=== PATIENT | female | born 1965 | race Caucasian/White ===

== ENCOUNTER → 2017-12-16 | Outpatient (CLI) | payer BC ==
--- NOTE | 2017-12-17 10:11 | MM ---
Reason for exam: screening (asymptomatic). Last mammogram was performed 1 year and 3 months ago. History: Patient is postmenopausal and is nulliparous. Physical Findings: A clinical breast exam by your physician is recommended on an annual basis and results should be correlated with mammographic findings. MG Screening Mammo w CAD Bilateral CC and MLO view(s) were taken. Prior study comparison: September 03, 2016, bilateral MG screening mammo w CAD. May 18, 2015, bilateral MG screening mammo w CAD. The breast tissue is heterogeneously dense. This may lower the sensitivity of mammography. There is no discrete abnormality. ASSESSMENT: Negative, BI-RAD 1 RECOMMENDATION: Routine screening mammogram of both breasts in 1 year.
== END | disposition home or self-care (01) ==
LOC: RADMAMWWP 08:00
PROVIDERS: ATTEND Obstetrics & Gynecology
DX: Z12.31 Encounter for screening mammogram for malignant neoplasm of breast (principal)
CPT/HCPCS: 77067

== ENCOUNTER → 2019-01-21 | Outpatient (CLI) | payer BC ==
--- NOTE | 2019-01-21 10:41 | BD ---
EXAMINATION TYPE: Axial Bone Density DATE OF EXAM: 01/21/2019 COMPARISON: NONE CLINICAL HISTORY: Height: 67 Weight: 177.4 FRAX RISK QUESTIONS: Alcohol (3 or more units per day): no Family History (Parent hip fracture): no Glucocorticoids (More than 3mos): no (Ex: prednisone, prednisolone, methylprednisolone, dexamethasone, and hydrocortisone). History of Fracture in Adulthood: no Secondary Osteoporosis: 1. Type 1 Diabetes: no 2. Hyperthyroidism: no 3. Menopause before 45: no 4. Malnutrition: no 5. Chronic liver disease: no Rheumatoid Arthritis: no Current Tobacco Use: yes RISK FACTORS HISTORY OF: Family History of Osteoporosis: yes Active: yes Diet low in dairy products/other sources of calcium: no Postmenopausal woman: 2 years ago MEDICATIONS:none Additional History: EXAM MEASUREMENTS: Bone mineral densitometry was performed using the [employer] System. Bone mineral density as measured about the Lumbar spine is: ----- L1-L4(G/cm2): 0.938 T Score Values are as follows: ----- L2: -1.6 ----- L3: -1.2 ----- L4: -3.2 ----- L1-L4: -2.0 Bone mineral density : baseline Bone mineral density about the R hip (g/cm2): 0.987 Bone mineral density about the L hip (g/cm2): 0.991 T Score values are as follows: -----R Neck: -0.4 -----L Neck: -0.3 -----R Total: 0.3 -----L Total: 0.3 Bone mineral density : baseline IMPRESSION: Osteopenia lumbar spine. NOTE: T-SCORE=SD OF THE YOUNG ADULT MEAN.
--- NOTE | 2019-01-22 10:27 | MM ---
Reason for exam: screening (asymptomatic). Last mammogram was performed 1 year and 1 month ago. History: Patient is postmenopausal and is nulliparous. Physical Findings: A clinical breast exam by your physician is recommended on an annual basis and results should be correlated with mammographic findings. MG Screening Mammo w CAD Bilateral CC and MLO view(s) were taken. Prior study comparison: December 16, 2017, bilateral MG screening mammo w CAD. September 03, 2016, bilateral MG screening mammo w CAD. The breast tissue is heterogeneously dense. This may lower the sensitivity of mammography. No suspicious abnormality. No significant changes when compared with prior studies. ASSESSMENT: Negative, BI-RAD 1 RECOMMENDATION: Routine screening mammogram of both breasts in 1 year.
== END | disposition home or self-care (01) ==
LOC: RADMAMWWP 08:20
PROVIDERS: ATTEND Obstetrics & Gynecology
DX: Z12.31 Encounter for screening mammogram for malignant neoplasm of breast (principal); M85.88 Other specified disorders of bone density and structure, other site; N95.1 Menopausal and female climacteric states
CPT/HCPCS: 77067; 77080

== ENCOUNTER → 2019-02-20 | Outpatient (CLI) | payer BC ==
[2019-02-20 20:11] LABS: LDL Cholesterol,Calculated 123.6 mg/dL (0.0-131.0); VLDL Calculation 13.4 mg/dL (5.00-40.00)
[2019-02-20 20:19] LABS: T4, Free (Free Thyroxine) 1.3 ng/dL (0.80-1.80)
== END ==
LOC: LABWHC1 10:36
PROVIDERS: ATTEND Obstetrics & Gynecology
DX: Z13.220 Encounter for screening for lipoid disorders (principal); Z13.29 Encounter for screening for other suspected endocrine disorder
CPT/HCPCS: 36415; 80061; 84439; 84443; 84479

== ENCOUNTER 2019-10-30 09:12 | Day surgery (SDC) | payer BC ==
[~2019-10-30 09:12] MED LIST: LACTATED RINGERS 1,000 ML IV SCH; LIDOCAINE 1% 20 ML VIAL (10MG/ML) FOR IV START INTRADERMA PRN
[2019-10-30 09:41] VITALS: RESP 16; TEMP 97.9
[2019-10-30] MEDS ORDERED: PROPOFOL 10 MG/ML 20 ML VIAL IV ONE (10:31)
[2019-10-30] MEDS ORDERED: LIDOCAINE 1% INJ 10MG/ML (20 ML MDV) ONE (10:31)
--- NOTE | 2019-10-30 11:19 | P.PCN ---
Date of Procedure: 10/30/19 Procedure(s) Performed: BRIEF HISTORY: Patient is a 53-year-old pleasant female scheduled for an elective colonoscopy as a part of screening for colorectal neoplasia. PROCEDURE PERFORMED: Colonoscopy. PREOPERATIVE DIAGNOSIS: Screening for colon cancer. IV sedation per Anesthesia. PROCEDURE: After informed consent was obtained, the patient, was brought into the endoscopy unit. IV sedation was administered by Anesthesia under continuous monitoring. Digital rectal examination was normal. Initially the Olympus CF-160 flexible video colonoscope was then inserted in the rectum, gradually advanced into the cecum without any difficulty. Careful examination was performed as the scope was gradually being withdrawn. Ileocecal valve and the appendiceal orifice were visualized and appeared normal. Prep was excellent. Mucosa of the cecum, ascending colon, transverse colon, descending colon, sigmoid colon, and rectum appeared normal. Retroflexion was performed in the rectum and no lesions were seen. The patient tolerated the procedure well. IMPRESSION: Normal-appearing colon from rectum to cecum no evidence of colorectal neoplasia. RECOMMENDATIONS: Findings of this examination were discussed with the patient is well as her family. She was advised to have a repeat screening colonoscopy in 10 years..
[2019-10-30 11:25] VITALS: BP 105/77; PULSE 87
== END 2019-10-30 11:42 | disposition home or self-care (01) ==
LOC: ORWHC2ENDO 09:12
PROVIDERS: ATTEND Internal Medicine Gastroenterology
DX: Z12.11 Encounter for screening for malignant neoplasm of colon (principal); Z98.890 Other specified postprocedural states
CPT/HCPCS: J2001; J2704; G0121

== ENCOUNTER → 2020-03-29 | Outpatient (CLI) | payer BC ==
[2020-03-29 14:20] LABS: MCH 29.6 pg (25.0-35.0); MCHC 31.1 g/dL (31.0-37.0); MCV 94.9 fL (80.0-100.0); Mean Platelet Volume 7.1; Platelet Count 242 k/uL (150-450); RBC 5.06 m/uL (3.80-5.40); RDW 13.1 % (11.5-15.5); WBC 7.2 k/uL (3.8-10.6)
[2020-03-29 19:12] LABS: Chol/HDL Ratio 3.85; LDL Cholesterol,Calculated 135.8 mg/dL (0.0-131.0); VLDL Calculation 21.2 mg/dL (5.00-40.00)
== END | disposition home or self-care (01) ==
LOC: LABWHC1 12:12
PROVIDERS: ATTEND Obstetrics & Gynecology
DX: Z13.220 Encounter for screening for lipoid disorders (principal); M85.80 Other specified disorders of bone density and structure, unspecified site
CPT/HCPCS: 36415; 80061; 82306; 85027

== ENCOUNTER → 2020-05-26 | Outpatient (CLI) | payer BC ==
--- NOTE | 2020-05-27 09:31 | MM ---
Reason for exam: screening (asymptomatic). Last mammogram was performed 1 year and 4 months ago. History: Patient is postmenopausal and is nulliparous. Physical Findings: A clinical breast exam by your physician is recommended on an annual basis and results should be correlated with mammographic findings. MG Screening Mammo w CAD Bilateral CC and MLO view(s) were taken. Prior study comparison: January 21, 2019, bilateral MG screening mammo w CAD. December 16, 2017, bilateral MG screening mammo w CAD. The breast tissue is heterogeneously dense. This may lower the sensitivity of mammography. Finding: There is a 5 mm obscured oval mass in the upper inner quadrant of the left breast. There is a chronic nodularity in the right breast, stable. ASSESSMENT: Incomplete: need additional imaging evaluation, BI-RAD 0 RECOMMENDATION: Special view mammogram of the left breast. If lesion persists on supplemental views, image directed ultrasound is recommended. [facility] will attempt to contact patient to return for supplemental views and ultrasound if indicated.
== END | disposition home or self-care (01) ==
LOC: RADMAMWWP 07:35
PROVIDERS: ATTEND Obstetrics & Gynecology
DX: Z12.31 Encounter for screening mammogram for malignant neoplasm of breast (principal)
CPT/HCPCS: 77067

== ENCOUNTER → 2020-06-15 | Outpatient (CLI) | payer BC ==
--- NOTE | 2020-06-15 11:46 | MM ---
Reason for exam: additional evaluation requested from abnormal screening. Last mammogram was performed 1 month ago. History: Patient is postmenopausal and is nulliparous. Physical Findings: Nurse did not find any significant physical abnormalities on exam. MG Work Up Mamm w CAD LT Spot compression CC, spot compression MLO, and LM view(s) were taken of the left breast. Prior study comparison: May 26, 2020, bilateral MG screening mammo w CAD. January 21, 2019, bilateral MG screening mammo w CAD. The breast tissue is heterogeneously dense. This may lower the sensitivity of mammography. Posterior medial and central asymmetric density becomes less defined on spot compression and may have been present on the 2016 study. 6 month follow up recommended. These results were verbally communicated with the patient and result sheet given to the patient on 06/15/20. ASSESSMENT: Probably benign, BI-RAD 3 RECOMMENDATION: Follow-up diagnostic mammogram of the left breast in 6 months.
== END | disposition home or self-care (01) ==
LOC: RADMAMWWP 10:03
PROVIDERS: ATTEND Obstetrics & Gynecology
DX: R92.8 Other abnormal and inconclusive findings on diagnostic imaging of breast (principal)
CPT/HCPCS: 77065

== ENCOUNTER → 2022-05-16 | Outpatient (CLI) | payer BC ==
--- NOTE | 2022-05-17 07:52 | MM ---
Reason for Exam: Screening (asymptomatic). Last mammogram was performed 2 year(s) and 0 month(s) ago. Patient History: Menarche at age 14. Patient has no children. Postmenopausal. Risk Values: Apurva 5 year model risk: 1.3%. NCI Lifetime model risk: 9.3%. Prior Study Comparison: 01/21/2019 Bilateral Screening Mammogram, [facility]. 05/26/2020 Bilateral Screening Mammogram, [facility]. 06/15/2020 Left Diagnostic Mammogram, [facility]. Tissue Density: The breast tissue is heterogeneously dense. This may lower the sensitivity of mammography. Findings: Analyzed By CAD. There is no suspicious group of microcalcifications or new suspicious mass in either breast. Overall Assessment: Negative, BI-RAD 1 Management: Screening Mammogram of both breasts in 1 year. A clinical breast exam by your physician is recommended on an annual basis and results should be correlated with mammographic findings. Electronically signed and approved by: Patrick Whitley M.D. Radiologis
== END | disposition home or self-care (01) ==
LOC: RADMAMWWP 07:33
PROVIDERS: ATTEND Obstetrics & Gynecology
DX: Z12.31 Encounter for screening mammogram for malignant neoplasm of breast (principal)
CPT/HCPCS: 77063; 77067

== ENCOUNTER → 2022-05-26 | Outpatient (CLI) | payer BC ==
--- NOTE | 2022-05-27 04:27 | MR ---
EXAMINATION TYPE: MR shoulder RT wo con DATE OF EXAM: 05/26/2022 COMPARISON: None HISTORY: Rt shoulder pain when raising arm above head x1.5 years Multiplanar multi echo imaging of the right shoulder with no contrast. The biceps tendon is intact. Subscapularis tendon is intact. There is a small shoulder joint effusion . The glenoid kj appear intact. There is no evidence of a fracture. No focal bone destruction. AC joint is intact. No significant sub acromial impingement. The supraspinatus tendon is intact. No retraction. The infraspinatus tendon is intact. IMPRESSION: Small shoulder joint effusion consistent with some mild synovitis. No evidence of rotator cuff tear.
== END | disposition home or self-care (01) ==
LOC: RADMRIMAIN 11:57
PROVIDERS: ATTEND Orthopaedic Surgery
DX: M25.411 Effusion, right shoulder (principal); M25.511 Pain in right shoulder

== ENCOUNTER → 2024-07-13 | Outpatient (CLI) | payer OTHER ==
--- NOTE | 2024-07-14 13:32 | BD ---
EXAMINATION TYPE: Axial Bone Density DATE OF EXAM: 07/13/2024 CLINICAL HISTORY: 58 years old Female. ICD-10 CODE: M81.0 Known Osteoporosis Height: 67 Weight: 146 FRAX RISK QUESTIONS: Alcohol (3 or more units per day): no Family History (Parent hip fracture): no Glucocorticoids (More than 3mos): no (Ex: prednisone, prednisolone, methylprednisolone, dexamethasone, and hydrocortisone). History of Fracture in Adulthood: no Secondary Osteoporosis: 1. Type 1 Diabetes: no 2. Hyperthyroidism: no 3. Menopause before 45: no 4. Malnutrition: no 5. Chronic liver disease: no Rheumatoid Arthritis: no Current Tobacco Use: yes RISK FACTORS HISTORY OF: Surgery to Spine/Hip(right/left)/Wrist (right/left): no EXAM MEASUREMENTS: Bone mineral densitometry was performed using the [employer] System. Bone mineral density as measured about the Lumbar spine is: ----- L1-L4(G/cm2): 0.897 T Score Values are as follows: ----- L1: -2.5 ----- L2: -2.2 ----- L3: -1.8 ----- L4: -3.0 ----- L1-L4: -2.4 Z Score Values are as follows: ----- L1: -1.6 ----- L2: -1.3 ----- L3: -0.9 ----- L4: -2.1 ----- L1-L4: -1.5 Bone mineral density has: decreased -4.4 % since study of: 01.21.2019 Bone mineral density about the R hip (g/cm2): 0.970 Bone mineral density about the L hip (g/cm2): 0.944 T Score values are as follows: -----R Neck: -0.6 -----L Neck: -0.7 -----R Total: -0.3 -----L Total: -0.5 Z Score values are as follows: -----R Neck: 0.5 -----L Neck: 0.3 -----R Total: 0.4 -----L Total: 0.2 Bone mineral density has: decreased -8.3 % since study of: 01.21.2019 FRAX%s: The graph provided illustrates a 5.5% chance for a major osteoporotic fx and a 0.4% chance fo r the hips probability for fx in 10 years time. IMPRESSION: Osteopenia (T Score between -2.5 and -1). There is slightly increased risk of fracture and the patient may be considered for treatment. Re-Screen 2-5 years. NOTE: T-SCORE=SD OF THE YOUNG ADULT MEAN.
--- NOTE | 2024-07-14 14:00 | MM ---
Reason for Exam: Screening (asymptomatic). Last mammogram was performed 2 year(s) and 2 month(s) ago. Patient History: Menarche at age 14. Patient has no children. Postmenopausal. Risk Values: Apurva 5 year model risk: 1.4%. NCI Lifetime model risk: 8.9%. Prior Study Comparison: 05/26/2020 Bilateral Screening Mammogram, [facility]. 06/15/2020 Left Diagnostic Mammogram, [facility]. 05/16/2022 Bilateral MG 3D screening mammo w/cad, [facility]. Tissue Density: The breasts are heterogeneously dense, which may obscure small masses. Findings: Analyzed By CAD. There is no suspicious group of microcalcifications or new suspicious mass in either breast. Overall Assessment: Negative, BI-RAD 1 Management: Screening Mammogram of both breasts in 1 year. . Patient should continue monthly self-breast exams. A clinical breast exam by your physician is recommended on an annual basis. This exam should not preclude additional follow-up of suspicious palpable abnormalities. Note on Apurva scores and lifetime risk: 1. A Apurva score greater than 3% is considered moderate risk. If this is the case, consider specialist referral to assess eligibility for a risk reducing agent. 2. If overall lifetime risk for the development of breast cancer is 20% or higher, the patient may qualify for future screening with alternating mammogram and breast MRI. Electronically signed and approved by: Patrick Whitley M.D. Radiologis
== END | disposition home or self-care (01) ==
LOC: RADMAMWWP 12:09
PROVIDERS: ATTEND Family Medicine
DX: Z12.31 Encounter for screening mammogram for malignant neoplasm of breast (principal); M81.8 Other osteoporosis without current pathological fracture; Z78.0 Asymptomatic menopausal state; R92.333 Mammographic heterogeneous density, bilateral breasts
CPT/HCPCS: 77063; 77067; 77080